=== PATIENT | male | born 2000 ===

== ENCOUNTER 2020-06-11 11:44 | Emergency (ER) | payer SELFPAY ==
[~2020-06-11] VITALS: Ht 177.8 cm; Wt 84.4 kg
--- NOTE | 2020-06-11 14:11 | NUR ---
RICHARD RN: CALLED PT TO RE-VITAL, NO INCREASE PAIN AT THIS TIME
[2020-06-11 14:12] VITALS: BP 135/82
[2020-06-11 15:09] LABS: BASOPHILS % (AUTO) 1 % (0-1); EOSINOPHILS % (AUTO) 1 % (1-7); LYMPHOCYTES % (AUTO) 18 % (22-44); MEAN CORPUSCULAR HEMOGLOBIN 29.6 pg (27.5-34.5); MEAN CORPUSCULAR HGB CONC 33.5 g/dL (33.2-36.2); MONOCYTES % (AUTO) 6 % (2-9); NEUTROPHILS % (AUTO) 74 % (42-75); PLATELET COUNT 352 x10^3/uL (130-400); RED BLOOD COUNT 4.94 x10^6/uL (4.38-5.82); RED CELL DISTRIBUTION WIDTH 13.8 % (9.4-14.8)
[2020-06-11 15:13] LABS: ANION GAP 6 mmol/L (5-15); CALCIUM 9.3 mg/dL (8.5-10.1); CHLORIDE 109 mmol/L (98-107)
[2020-06-11 15:14] LABS: CREATININE 1.22 mg/dL (0.7-1.3)
[2020-06-11 15:23] LABS: MD NO
== END 2020-06-11 17:39 | disposition left against medical advice (07) ==
LOC: ED 17:00
DX: N13.2 Hydronephrosis with renal and ureteral calculous obstruction (principal); R10.9 Unspecified abdominal pain
CPT/HCPCS: 36415; 74176; 80048; 85025; 99284